=== PATIENT | female | born 1980 | race Caucasian/White ===

== ENCOUNTER 2020-01-27 09:25 | Emergency (ER) | payer BC ==
[~2020-01-27] VITALS: Ht 170.2 cm; Wt 131.4 kg
--- NOTE | 2020-01-27 10:44 | PHYS DOC ---
Past History Past Medical History: Anxiety, Diabetes, Other (History of lower back disc dysfunction) Past Surgical History: Cholecystectomy Smoking: Cigarettes Alcohol Use: None Drug Use: None Adult General Chief Complaint Chief Complaint: SHORTNESS OF BREATH HPI HPI Patient is a 39-year-old female who presents stating " I am in respiratory distress and I have cauda equina syndrome". States she has had URI-like symptoms with increased productive cough and wheezing for past 2 weeks. Reports being tested for Covid approximately 1.5 weeks ago and negative. She has been afebrile. States she had leftover amoxicillin at home and subsequently has been self-medicating taking 500 mg twice daily and is currently on day 7 of treatment. She has not had any fever. Patient also complaining of potential cauda equina syndrome. States " this has happened to me in the past twice and my primary care physician said if it happens again go to the ER". Reports having a spontaneous vaginal delivery February 2019 and ever since has had stress incontinence. Nonetheless, her inco ntinence has been worsening with increased frequency. States current episode has been worse than usual and over the past 3 weeks has been wetting numerous pads daily versus lightly dampening a pad daily. No other changes in bowel function. Reports she has history of back dysfunction, states she has a slipped disc in the L3 region and was previously a patient of [facility], she has never had spine surgery before. Reports long history of saddle anesthesia and symptoms consistent with left sciatica but reports today, right sided sciatica-like symptoms with decrease in sensation of perianal region. 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 She has been working through current complaints but today was concerned and wanted to be evaluated. Her PCP is supposedly pending MRI completion in outpatient setting but patient reports not having the money to pay $400 for this to be completed Review of Systems Review of Systems Fourteen body systems of review of systems have been reviewed. See HPI for pertinent positives and negative responses, other valles all other systems are negative, non-pertinent or non-contributory Allergies Allergies Allergies Coded Allergies Type Severity Reaction Last Updated Verified No Known Drug Allergies 01/27/20 No Physical Exam Physical Exam Constitutional: Well developed, obese, well nourished, no acute distress, non-to xic appearance. HENT: Normocephalic, atraumatic, bilateral external ears normal, oropharynx moist, no oral exudates, moderate postnasal drip present, moderately engorged nasal turbinates with clear rhinorrhea present, external nose normal. Eyes: PERRLA, EOMI, conjunctiva normal, no discharge. Neck: Normal range of motion, no tenderness, supple, no stridor. Cardiovascular: Heart rate regular, sinus rhythm, no murmurs rubs or gallops Lungs & Thorax: No obvious respiratory distress, no accessory muscle usage, bilateral extensive rhonchi and upper lobes Abdomen: Bowel sounds normal, soft, no tenderness, no masses, no pulsatile mas ses. Nonsurgical abdomen, no peritoneal signs Skin: Warm, dry, no erythema, no rash. Back: No tenderness, no CVA tenderness. Extremities: No tenderness, no cyanosis, no clubbing, ROM intact, no edema. Neurologic: Alert and oriented X 3, complete motor examination of entire body with upper and lower extremity strength intact 5/5, bilateral patellar and Achilles tendon reflexes intact, negative Babinski bilaterally. Able to discriminate between sharp and dull touch in all dermatome distributions but a dmits decreased sensation of perianal region (s3) only, no focal neurologic deficits noted. Cranial nerves II through XII intact. Anal tone fully intact, able to bear down fully on finger without laxity or other concerning visual and/or palpable abnormalities. No gait abnormalities. No upper and/or lower motor neuron signs Psychologic: Affect normal, judgement normal, anxious mood Current Patient Data Vital Signs Vital Signs Date Time Temp Pulse Resp B/P (MAP) Pulse Ox O2 Delivery O2 Flow Rate FiO2 01/27/20 10:00 98.6 92 20 164/91 (115) 98 Lab Results Laboratory Tests Test 01/27/20 11:00 01/27/20 11:03 Urine Collection Type Unknown Urine Color Yellow Urine Clarity Hazy Urine pH 5.0 Urine Specific [place] >=1.030 Urine Protein Neg (NEG-TRACE) Urine Glucose (UA) Neg mg/dL (NEG) Urine Ketones (Stick) Neg mg/dL (NEG) Urine Blood Neg (NEG) Urine Nitrite Neg (NEG) Urine Bilirubin Neg (NEG) Urine Urobilinogen Dipstick 0.2 mg/dL (0.2 mg/dL) Urine Leukocyte Esterase Neg (NEG) Urine RBC Rare /HPF (0-2) Urine WBC 1-4 /HPF (0-4) Urine Squamous Epithelial Cells Mod /LPF Urine Bacteria Few /HPF (0-FEW) Urine Mucus Slight /LPF Urine Test Negative (NEG) White Blood Count 9.5 x10^3/uL (4.0-11.0) Red Blood Count 4.81 x10^6/uL (3.50-5.40) Hemoglobin 15.1 g/dL (12.0-15.5) Hematocrit 45.5 % (36.0-47.0) Mean Corpuscular Volume 95 fL (79-100) Mean Corpuscular Hemoglobin 31 pg (25-35) Mean Corpuscular Hemoglobin Concent 33 g/dL (31-37) Red Cell Distribution Width 14.2 % (11.5-14.5) Platelet Count 205 x10^3/uL (140-400) Neutrophils (%) (Auto) 59 % (31-73) Lymphocytes (%) (Auto) 30 % (24-48) Monocytes (%) (Auto) 7 % (0-9) Eosinophils (%) (Auto) 4 % (0-3) Basophils (%) (Auto) 1 % (0-3) Neutrophils # (Auto) 5.6 x10^3uL (1.8-7.7) Lymphocytes # (Auto) 2.8 x10^3/uL (1.0-4.8) Monocytes # (Auto) 0.7 x10^3/uL (0.0-1.1) Eosinophils # (Auto) 0.3 x10^3/uL (0.0-0.7) Basophils # (Auto) 0.1 x10^3/uL (0.0-0.2) Sodium Level 138 mmol/L (136-145) Potassium Level 3.8 mmol/L (3.5-5.1) Chloride Level 103 mmol/L (98-107) Carbon Dioxide Level 26 mmol/L (21-32) Anion Gap 9 (6-14) Blood Urea Nitrogen 12 mg/dL (7-20) Creatinine 0.8 mg/dL (0.6-1.0) Estimated GFR (Cockcroft-Gault) 79.9 BUN/Creatinine Ratio 15 (6-20) Glucose Level 166 mg/dL (70-99) Calcium Level 9.4 mg/dL (8.5-10.1) Total Bilirubin 0.2 mg/dL (0.2-1.0) Aspartate Amino Transf (AST/SGOT) 37 U/L (15-37) Alanine Aminotransferase (ALT/SGPT) 62 U/L (14-59) Alkaline Phosphatase 107 U/L (46-116) Creatine Kinase 209 U/L (26-192) Troponin I Quantitative < 0.017 ng/mL (0-0.055) HT-Bso-B-Type Natriuretic Peptide 18 pg/mL (0-124) Total Protein 7.6 g/dL (6.4-8.2) Albumin 3.6 g/dL (3.4-5.0) Albumin/Globulin Ratio 0.9 (1.0-1.7) EKG EKG EKG ordered and interpreted by myself at 1105 hrs. as sinus rhythm at 86 bpm, unremarkable intervals, no axis deviation, no ischemic findings, no STEMI Radiology/Procedures Radiology/Procedures PROCEDURE: PORTABLE CHEST 1V PORTABLE CHEST 1V 01/27/2020 10:44 AM INDICATION: Shortness of breath COMPARISON: None available TECHNIQUE: Portable frontal view of the chest is provided. FINDINGS: The cardiomediastinal silhouette is within normal limits. Nodular opacity identified in the right infrahilar region measuring 2.2 cm. Left infrahilar soft tissue prominence may reflect lymphadenopathy versus vascular prominence. Mild interstitial prominence. No pleural effusions or pneumothorax No suspicious osseous abnormality. IMPRESSION: 1. Soft tissue nodule in the right infrahilar region measures 2.2 cm. Further characterization with CT chest is recommended. Consideration may be given for rounded pneumonia in the appropriate clinical setting. 2. Prominence of the medhat, left greater than right. This may represent vascular prominence versus lymphadenopathy. Electronically signed by: Hanna Osman MD (01/27/2020 11:26 AM) [facility] PROCEDURE: CT CHEST WO CONTRAST EXAM: CT Chest without IV contrast INDICATION: Abnormal chest x-ray showing no 2.2 cm soft tissue nodule in the right infrahilar region in a patient with shortness of breath. TECHNIQUE: Multi-detector row CT images were acquired from the thoracic inlet through the upper abdomen without the use of IV contrast. Sagittal and coronal images were acquired from the transaxial data. All CT scans performed at this facility utilize dose optimization techniques as appropriate to the exam, including the following: Automated exposure control and adjustment of the mA and/or KV according to patient size (this includes techniques or standardized protocols for targeted exams where dose is indication/reason for exam). COMPARISON: Chest x-ray of 01/27/2020 at 10:08 AM FINDINGS: The absence of IV contrast limits evaluation of soft tissue pathology. CARDIOVASCULAR: Unremarkable MEDIASTINUM & MEDHAT: No adenopathy or masses. LUNGS: Patchy groundglass attenuation opacities are present bilaterally lungs affecting the left upper lobe and right middle lobe to the greatest extent. PLEURAL SPACE: No pleural effusions or pneumothorax. 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 ABDOMEN: Included upper abdomen shows severe fatty infiltration of the liver. IMPRESSION: 1. No mass in the right infrahilar region is identified on noncontrast CT chest. 2. Patchy groundglass opacities in the lungs bilaterally are Present and could reflect atypical pneumonia in the appropriate clinical context. 3. Incidental severe fatty infiltration of the liver. Electronically signed by: Boby Muro MD (01/27/2020 12:51 PM) [id number] Heart Score HEART Score for Chest Pain: HEART Score for Chest Pain Response (Comments) Value History Slighlty/Non-Suspicious 0 ECG Normal 0 Age < 45 0 Risk Factors 1 or 2 Risk Factors 1 Troponin < Normal Limit 0 Total 1 Risk Factors: Risk Factors: DM, Current or recent (<one month) smoker, HTN, HLP, family history of CAD, obesity. Risk Scores: Risk Factors: DM, Current or recent (<one month) smoker, HTN, HLP, family history of CAD, obesity. Course & Med Decision Making Course & Med Decision Making Pertinent Labs and Imaging studies reviewed. (See chart for details) Regarding patient's respiratory complaints, most likely diagnosis atypical pneumonia but could not definitively exclude COVID-19 patient was swabbed for this and results pending. Patient received adequate treatment with home amoxicillin, this will be discontinued. 500 mg azithromycin administered in ER today, this will continue for routine course for atypical pneumonia in an otherwise hemodynamically stable afebrile patient Regarding patient's lower back problems and concern for cauda equina, history is concerning but physical exam grossly unremarkable. With that said, I disclose I could not definitively rule out such an emergent and/or devastating condition. I discussed case with on-call neurosurgery attending at [facility] and recommendations were given at that time to transport out for MRI imaging. I disclosed this plan with patient and she remained in our ER pending EMS transport to local facility for MRI completion. With all this set above, patient vocalized leaving AGAINST MEDICAL ADVICE. Patient citing childcare for her children and lengthy wait due to over saturated medical system at present given current pandemic and high-volume in ER and hospitals etc. I have reviewed the relevant issues with the patient. They are aware of the suspected diagnosis. The patient is AAOx3, exhibits no alcohol or drug intoxication to a point that would impair ability to delineate a choice, and demonstrates all four garcía elements of capacity to make decisions regarding the medical care offered. - Patient able to Communicate their treatment choice - Patient able to Understand and recall information - Patient able to Appreciate and process probable outcomes of their condition - Patient able to Reason through communication their rationalization about their choice of care options, regardless of whether I as their provider agree with their rationale. Risks and Recommendations: The risks of refusing recommended care that were disclosed and acknowledged by the patient include loss of current lifestyle, permanent mental impairment, and . The recommended medical care being refused has been discussed with the patient who understood fully Discharge Care: The patient understands they are welcome to return to the hospital at any time to receive the recommended care or any other care at any time, regardless of their ability to pay for such care. Discharge instructions were provided to the patient in addition to new azithromycin prescription Dragon Disclaimer Dragon Disclaimer This electronic medical record was generated, in whole or in part, using a voice recognition dictation system. Departure Departure: Impression: Primary Impression: Left against medical advice Additional Impressions: Atypical pneumonia Lower back pain Incontinence in female Disposition: 07 AMA/ELOPED/LWBS Condition: STABLE (Cannot definitively say stable as patient left AMA pending MRI to rule out emergent condition) Referrals: RAMIREZ TOURE MD (PCP) Additional Instructions: You have been evaluated in the Emergency Department today. You are refusing further testing, imaging, and further admission and choosing to leave against medical advice. You were advised of your risks of leaving and understand that permanent harm, or even , can occur from failing to follow the recommendations of the physician. Please follow up with your primary care physician MYRON. You have been given antibiotics for atypical pneumonia, please take these to co mpletion in its entirety as written You have refused MRI which was being used to definitively rule out concerning spinal abnormalities such as cauda equina, you are fully aware of the risks and benefits of this decision. I would recommend calling your primary care physician MYRON regarding this to schedule extremely close outpatient follow-up and subsequent completion of MRI Return to the Emergency Department immediately if you experience worsening or uncontrolled pain, persistent fevers, recurrent vomiting, blood in vomit, blood in stool, dark tarry stool, chest pain, shortness of breath, or for any other concerning symptoms. Scripts Azithromycin (AZITHROMYCIN TABLET) 250 Mg Tablet 250 MG PO DAILY for ANTI-BIOTIC for 4 Days, #4 TAB 0 Refills Prov: LUIS A CRYSTAL DO 01/27/20 Problem Qualifiers LUIS A CRYSTAL DO Jan 27, 2020 10:44
[2020-01-27] MEDS ORDERED: IPRATRPIUM/ALBUTEROL 0.5/2.5MG 3 ML NEBU. NEB ONE (10:45)
--- NOTE | 2020-01-27 11:11 | EKG ---
[address] [address] Test Date: 2020-01-27 Test Time: 11:02:08 Pat Name: TONYA SANDOVAL Department: Room: Gender: F Make Up Girl: : 1980 Requested By: LUIS A CRYSTAL Order Number: [id number] Reading MD: Measurements Intervals [place] Rate: 86 P: 15 [place]: 136 QRS: 76 QRSD: 74 T: 45 QT: 348 QTc: 419 Interpretive Statements SINUS RHYTHM NORMAL ECG RI6.02 No previous ECG available for comparison
[2020-01-27 11:27] LABS: BASO # 0.1 x10^3/uL (0.0-0.2); BASO % 1 % (0-3); EOS # 0.3 x10^3/uL (0.0-0.7); EOS % 4 % (0-3); HEMATOCRIT 45.5 % (36.0-47.0); HEMOGLOBIN 15.1 g/dL (12.0-15.5); LYMPH # 2.8 x10^3/uL (1.0-4.8); LYMPH % 30 % (24-48); MEAN CORPUSCULAR HEMOGLOBIN 31 pg (25-35); MEAN CORPUSCULAR HGB CONC 33 g/dL (31-37); MEAN CORPUSCULAR VOLUME 95 fL (79-100); MONO # 0.7 x10^3/uL (0.0-1.1); MONO % 7 % (0-9); NEUT # 5.6 x10^3uL (1.8-7.7); NEUT % 59 % (31-73); PLATELET COUNT 205 x10^3/uL (140-400); RED BLOOD COUNT 4.81 x10^6/uL (3.50-5.40); RED CELL DISTRIBUTION WIDTH 14.2 % (11.5-14.5); WHITE BLOOD COUNT 9.5 x10^3/uL (4.0-11.0)
--- NOTE | 2020-01-27 11:29 | RAD ---
PORTABLE CHEST 1V 01/27/2020 10:44 AM INDICATION: Shortness of breath COMPARISON: None available TECHNIQUE: Portable frontal view of the chest is provided. FINDINGS: The cardiomediastinal silhouette is within normal limits. Nodular opacity identified in the right infrahilar region measuring 2.2 cm. Left infrahilar soft tissue prominence may reflect lymphadenopathy versus vascular prominence. Mild interstitial prominence. No pleural effusions or pneumothorax No suspicious osseous abnormality. IMPRESSION: 1. Soft tissue nodule in the right infrahilar region measures 2.2 cm. Further characterization with CT chest is recommended. Consideration may be given for rounded pneumonia in the appropriate clinical setting. 2. Prominence of the medhat, left greater than right. This may represent vascular prominence versus lymphadenopathy. Electronically signed by: Hanna Osman MD (01/27/2020 11:26 AM) JAY
[2020-01-27 11:31] LABS: BILIRUBIN,URINE NEG (NEG); CLARITY,URINE HAZY; COLOR,URINE YELLOW; GLUCOSE,URINE NEG (NEG); NITRITE,URINE NEG (NEG); UROBILINOGEN,URINE 0.2 mg/dL (0.2 mg/dL)
[2020-01-27 11:32] LABS: BACTERIA,URINE FEW /HPF (0-FEW); RBC,URINE RARE /HPF (0-2); SQUAMOUS EPITHELIAL CELL,UR MOD /LPF; U PREG PATIENT NEGATIVE (NEG)
[2020-01-27 11:35] LABS: CALCIUM 9.4 mg/dL (8.5-10.1); CREATININE 0.8 mg/dL (0.6-1.0); GFR 79.9; POTASSIUM 3.8 mmol/L (3.5-5.1)
[2020-01-27 11:48] LABS: ALBUMIN 3.6 g/dL (3.4-5.0); ALBUMIN/GLOBULIN RATIO 0.9 (1.0-1.7); TOTAL BILIRUBIN 0.2 mg/dL (0.2-1.0); TOTAL PROTEIN 7.6 g/dL (6.4-8.2)
--- NOTE | 2020-01-27 12:54 | RAD ---
EXAM: CT Chest without IV contrast INDICATION: Abnormal chest x-ray showing no 2.2 cm soft tissue nodule in the right infrahilar region in a patient with shortness of breath. TECHNIQUE: Multi-detector row CT images were acquired from the thoracic inlet through the upper abdomen without the use of IV contrast. Sagittal and coronal images were acquired from the transaxial data. All CT scans performed at this facility utilize dose optimization techniques as appropriate to the exam, including the following: Automated exposure control and adjustment of the mA and/or KV according to patient size (this includes techniques or standardized protocols for targeted exams where dose is indication/reason for exam). COMPARISON: Chest x-ray of 01/27/2020 at 10:08 AM FINDINGS: The absence of IV contrast limits evaluation of soft tissue pathology. CARDIOVASCULAR: Unremarkable MEDIASTINUM & JENNIFER: No adenopathy or masses. LUNGS: Patchy groundglass attenuation opacities are present bilaterally lungs affecting the left upper lobe and right middle lobe to the greatest extent. PLEURAL SPACE: No pleural effusions or pneumothorax. OSSEOUS & SOFT TISSUE: Unremarkable Tubular radiopaque foreign body in the patient's left bra cup is present, resembling a cigarette automobile mechanic supervisor. ABDOMEN: Included upper abdomen shows severe fatty infiltration of the liver. IMPRESSION: 1. No mass in the right infrahilar region is identified on noncontrast CT chest. 2. Patchy groundglass opacities in the lungs bilaterally are Present and could reflect atypical pneumonia in the appropriate clinical context. 3. Incidental severe fatty infiltration of the liver. Electronically signed by: Boby Muro MD (01/27/2020 12:51 PM) [id number]
[2020-01-27 14:34] VITALS: BP 151/81
[2020-01-27] MEDS ORDERED: AZIT250T6 PO (14:37)
[2020-01-27] MEDS ORDERED: AZITHROMYCIN 250 MG TABLET. PO ONE (14:45)
== END 2020-01-27 14:44 | disposition left against medical advice (07) ==
LOC: ER 09:25
DX: J18.9 Pneumonia, unspecified organism (principal); M54.5 Low back pain; N39.3 Stress incontinence (female) (male); G83.4 Cauda equina syndrome; F41.9 Anxiety disorder, unspecified; E11.9 Type 2 diabetes mellitus without complications; F17.210 Nicotine dependence, cigarettes, uncomplicated; Z20.828 Contact with and (suspected) exposure to other viral communicable diseases
CPT/HCPCS: 36415; 71045; 71250; 80053; 81001; 81025; 82550; 83880; 84484; 85025; 93005; 94640; 99285; C9803; U0003

== ENCOUNTER 2020-06-09 10:43 | Emergency (ER) | payer SELFPAY ==
[~2020-06-09] VITALS: Ht 170.2 cm; Wt 128.1 kg
[~2020-06-09 10:43] MED LIST: AZIT250T6 PO
[2020-06-09] MEDS: IV NORMAL SALINE 1,000ML 1,000 ML IV SCH (11:15)
--- NOTE | 2020-06-09 11:17 | PHYS DOC ---
Past History Past Medical History: Anxiety, Diabetes, Other Additional Past Medical Histor: CAUDA EQUINA, LUPUS Past Surgical History: Cholecystectomy Smoking: Cigarettes Alcohol Use: None Drug Use: None Adult General Chief Complaint Chief Complaint: ABDOMINAL PAIN IN HPI HPI Patient is a 39-year-old female 7 weeks by last menstrual period with a past medical history of anxiety, hypertension and PCOS now presenting to emergency department for new onset of left lower quadrant abdominal pain. Patient states that she had worsening pain in the left lower quadrant rating to the left back that started spontaneously approximately 3 days ago and has been increasing in severity. Patient states is characterized by worsening spasms that are severe enough that they cause her to double over and vomit. Patient states she had similar symptoms when she had a left-sided ovarian cyst with her PCOS. Patient also notes that she has had some intermittent vaginal spotting and bleeding. Denies any associated fever, chest pain or shortness of breath. Review of Systems Review of Systems Constitutional: Denies fever or chills [] Eyes: Denies change in visual acuity, redness, or eye pain [] HENT: Denies nasal congestion or sore throat [] Respiratory: Denies cough or shortness of breath [] Cardiovascular: No additional information not addressed in HPI [] GI: Denies abdominal pain, nausea, vomiting, bloody stools or diarrhea [] : Denies dysuria or hematuria [] Musculoskeletal: Denies back pain or joint pain [] Integument: Denies rash or skin lesions [] Neurologic: Denies headache, focal weakness or sensory changes [] Endocrine: Denies polyuria or polydipsia [] All other systems were reviewed and found to be within normal limits, except as documented in this note. Current Medications Current Medications Current Medications Medications (Trade) Dose Ordered Sig/El Start Time Stop Time Status Last Admin Dose Admin Sodium Chloride 1,000 ml @ 1,000 mls/hr Q1H 06/09/20 11:15 06/09/20 12:14 Allergies Allergies Allergies Coded Allergies Type Severity Reaction Last Updated Verified No Known Drug Allergies 01/27/20 No Physical Exam Physical Exam Constitutional: Well developed, well nourished, no acute distress, non-toxic ina earance. [] HENT: Normocephalic, atraumatic, bilateral external ears normal, oropharynx moist, no oral exudates, nose normal. [] Eyes: PERRLA, EOMI, conjunctiva normal, no discharge. [] Neck: Normal range of motion, no tenderness, supple, no stridor. [] Cardiovascular:Heart rate regular rhythm, no murmur [] Lungs & Thorax: Bilateral breath sounds clear to auscultation [] Abdomen: Bowel sounds normal, soft, no tenderness, no masses, no pulsatile masses. [] Skin: Warm, dry, no erythema, no rash. [] Back: No tenderness, no CVA tenderness. [] Extremities: No tenderness, no cyanosis, no clubbing, ROM intact, no edema. [] Neurologic: Alert and oriented X 3, normal motor function, normal sensory function, no focal deficits noted. [] Psychologic: Affect normal, judgement normal, mood normal. [] Current Patient Data Vital Signs Vital Signs Date Time Temp Pulse Resp B/P (MAP) Pulse Ox O2 Delivery O2 Flow Rate FiO2 06/09/20 10:52 98.0 81 16 137/89 (105) 98 Room Air Lab Results Laboratory Tests Test 06/09/20 10:59 POC Urine HCG, Qualitative hcg positive (Negative) EKG EKG [] Radiology/Procedures Radiology/Procedures [] Heart Score Risk Factors: Risk Factors: DM, Current or recent (<one month) smoker, HTN, HLP, family history of CAD, obesity. Risk Scores: Risk Factors: DM, Current or recent (<one month) smoker, HTN, HLP, family history of CAD, obesity. Course & Med Decision Making Course & Med Decision Making Pertinent Labs and Imaging studies reviewed. (See chart for details) 39F sinus bradycardia male presenting with large abdominal wound. This is a setting of does raise concern for acute ectopic or ovarian torsion. Will obtain labs and pelvic ultrasound and reevaluate. New After initial evaluation ultrasound did not demonstrate any significant pelvic abnormality. Our labs did demonstrate an elevated lipase raises concern for acute pancreatitis. Given the patient's severity and this I did offer the patient to be admitted to the hospital. Patient states instead she is not able to stay because she has children to care for at home and instead wants to leave AGAINST MEDICAL ADVICE. I had an extensive discussion with the patient regarding this and she still stated that she wanted to leave AGAINST MEDICAL ADVICE despite knowing verbalized understanding that she could reinjured. [place] Disclaimer Dragon Disclaimer This electronic medical record was generated, in whole or in part, using a voice recognition dictation system. Departure Departure: Impression: Primary Impression: Abdominal pain affecting Disposition: 07 AMA/ELOPED/LWBS Condition: STABLE Referrals: RAMIREZ TOURE MD (PCP) FIOR KHALIL MD Jun 09, 2020 11:16
[2020-06-09 11:32] LABS: BASO # 0.1 x10^3/uL (0.0-0.2); BASO % 1 % (0-3); EOS # 0.2 x10^3/uL (0.0-0.7); EOS % 2 % (0-3); HEMATOCRIT 43.9 % (36.0-47.0); HEMOGLOBIN 14.8 g/dL (12.0-15.5); LYMPH % 33 % (24-48); MEAN CORPUSCULAR HEMOGLOBIN 32 pg (25-35); MEAN CORPUSCULAR HGB CONC 34 g/dL (31-37); MEAN CORPUSCULAR VOLUME 94 fL (79-100); MONO # 0.7 x10^3/uL (0.0-1.1); MONO % 8 % (0-9); NEUT # 5.2 x10^3uL (1.8-7.7); NEUT % 57 % (31-73); PLATELET COUNT 213 x10^3/uL (140-400); RED BLOOD COUNT 4.68 x10^6/uL (3.50-5.40); RED CELL DISTRIBUTION WIDTH 14.4 % (11.5-14.5); WHITE BLOOD COUNT 9.1 x10^3/uL (4.0-11.0)
[2020-06-09 11:50] LABS: CALCIUM 9.9 mg/dL (8.5-10.1); CREATININE 0.7 mg/dL (0.6-1.0); GFR 93.2; POTASSIUM 3.8 mmol/L (3.5-5.1)
[2020-06-09 11:54] LABS: ALBUMIN 3.6 g/dL (3.4-5.0); ALBUMIN/GLOBULIN RATIO 0.9 (1.0-1.7); TOTAL BILIRUBIN 0.3 mg/dL (0.2-1.0); TOTAL PROTEIN 7.5 g/dL (6.4-8.2)
--- NOTE | 2020-06-09 12:06 | RAD ---
US OB <14 WKS +TV History: Reason: llq pain and tenderness / Spl. Instructions: / History: Comparison: None. Technique: Grayscale and color Doppler imaging of the pelvis was performed using transabdominal and t ransvaginal technique. Findings: The uterus measures 10.2 x 6.8 x 6.1 cm. Cervical length approximately 2.4 cm. Single intrauterine gestational sac with regular appearance. Yolk sac is identified. pole is id entified with crown-rump length 1.3 cm. Estimated gestational age by ultrasound 7 weeks 3 days. heart rate 150 bpm. Amniotic fluid within normal limits. Right ovary measures 2.3 x 2.4 x 2.0 cm. Multiple follicles. Left ovary measures 3.2 x 3.0 x 2.3 cm. Multiple follicles. Normal Doppler flow to the ovaries bilaterally. No adnexal masses are seen. IMPRESSION: 1. Single intrauterine with gestational age 7 weeks 3 days and heart rate 150 bpm. Electronically signed by: Angel Cruz DO (06/09/2020 12:04 PM) [id number]
[2020-06-09 12:23] LABS: PREG TEST PT QUAL POSITIVE (NEG)
[2020-06-09 12:41] LABS: BACTERIA,URINE 0 /HPF (0-FEW); BILIRUBIN,URINE NEG (NEG); CLARITY,URINE HAZY; COLOR,URINE YELLOW; GLUCOSE,URINE NEG (NEG); NITRITE,URINE NEG (NEG); SQUAMOUS EPITHELIAL CELL,UR MANY /LPF; UROBILINOGEN,URINE 0.2 mg/dL (0.2 mg/dL)
[2020-06-09 12:53] VITALS: BP 117/29
== END 2020-06-09 13:09 | disposition left against medical advice (07) ==
LOC: ER 10:43
DX: O26.891 Other specified pregnancy related conditions, first trimester (principal); R10.32 Left lower quadrant pain; O21.9 Vomiting of pregnancy, unspecified; O24.911 Unspecified diabetes mellitus in pregnancy, first trimester; F17.210 Nicotine dependence, cigarettes, uncomplicated; Z3A.01 Less than 8 weeks gestation of pregnancy
CPT/HCPCS: 36415; 76801; 76817; 80053; 81001; 81025; 83690; 84702; 84703; 85025; 86900; 86901; 87086; 96360; 96361; 99284; J7030; 99285-25

== ENCOUNTER → 2020-07-02 | Outpatient (CLI) | payer OTHER ==
[2020-06-09 12:53] VITALS: BP 117/29
[2020-07-02 14:38] LABS: BASO % 1 % (0-3); EOS # 0.3 x10^3/uL (0.0-0.7); EOS % 4 % (0-3); HEMATOCRIT 40.8 % (36.0-47.0); HEMOGLOBIN 13.9 g/dL (12.0-15.5); LYMPH # 2.5 x10^3/uL (1.0-4.8); LYMPH % 30 % (24-48); MEAN CORPUSCULAR HEMOGLOBIN 32 pg (25-35); MEAN CORPUSCULAR HGB CONC 34 g/dL (31-37); MEAN CORPUSCULAR VOLUME 94 fL (79-100); MONO # 0.6 x10^3/uL (0.0-1.1); MONO % 7 % (0-9); NEUT % 59 % (31-73); PLATELET COUNT 181 x10^3/uL (140-400); RED BLOOD COUNT 4.35 x10^6/uL (3.50-5.40); RED CELL DISTRIBUTION WIDTH 13.9 % (11.5-14.5); WHITE BLOOD COUNT 8.5 x10^3/uL (4.0-11.0)
[2020-07-02 14:48] LABS: ALBUMIN 3.3 g/dL (3.4-5.0); ALBUMIN/GLOBULIN RATIO 0.9 (1.0-1.7); CALCIUM 10.2 mg/dL (8.5-10.1); CREATININE 0.7 mg/dL (0.6-1.0); GFR 93.2; POTASSIUM 3.7 mmol/L (3.5-5.1); TOTAL BILIRUBIN 0.2 mg/dL (0.2-1.0)
== END ==
LOC: LAB 13:33
PROVIDERS: ATTEND Specialist
DX: R10.84 Generalized abdominal pain (principal)
CPT/HCPCS: 36415; 80053; 82150; 83690; 85025

== ENCOUNTER 2021-01-20 18:09 | Emergency (ER) | payer OTHER ==
[~2021-01-20] VITALS: Ht 170.2 cm; Wt 128.1 kg
[2021-01-20 18:45] VITALS: BP 120/67
--- NOTE | 2021-01-20 19:08 | PHYS DOC ---
Past History Past Medical History: Anxiety, Diabetes, Other Additional Past Medical Histor: CAUDA EQUINA, LUPUS Past Surgical History: Cholecystectomy Smoking: Cigarettes Alcohol Use: None Drug Use: None General Adult EDM: Chief Complaint: HEADACHE HPI: HPI: 40-year-old female presents with headache. Patient has a history of migraines. She has pain on the right side of her head which is the normal location of her migraines. She has had the symptoms for several days now. The thing that is different is that she is having some visual field changes in the right visual field. She is also stood up a couple times a day and had an episode of blacking out. She just wants to make sure there is nothing more serious than her headache going on. She would also like her headache to be better. She denies fever or chills. She just recently gave less than 2 weeks ago. She had gestational diabetes but is now only on Metformin. Review of Systems: Review of Systems: Constitutional: Denies fever or chills Eyes: Right lateral visual field spots. HENT: Denies nasal congestion or sore throat Respiratory: Denies cough or shortness of breath Cardiovascular: Denies chest pain or edema GI: Denies abdominal pain, nausea, vomiting, bloody stools or diarrhea : Denies dysuria Musculoskeletal: Denies back pain or joint pain Integument: Denies rash Neurologic: headache. Syncope. denies focal weakness or sensory changes Endocrine: Denies polyuria or polydipsia Lymphatic: Denies swollen glands Psychiatric: Denies depression or anxiety Allergies: Allergies: Allergies Coded Allergies Type Severity Reaction Last Updated Verified No Known Drug Allergies 01/27/20 No Physical Exam: PE: Constitutional: Well developed, well nourished, morbidly obese, no acute distress, non-toxic appearance. [] HENT: Normocephalic, atraumatic, bilateral external ears normal, oropharynx moist, no oral exudates, nose normal. [] Eyes: PERRLA, EOMI, conjunctiva normal, no discharge. [] Neck: Normal range of motion, no tenderness, supple, no stridor. [] Cardiovascular:Heart rate regular rhythm, no murmur [] Lungs & Thorax: Bilateral breath sounds clear to auscultation [] Abdomen: Bowel sounds normal, soft, no tenderness, no masses, no pulsatile masses. [] Skin: Warm, dry, no erythema, no rash. [] Back: No tenderness, no CVA tenderness. [] Extremities: No tenderness, no cyanosis, no clubbing, ROM intact, no edema. [] Neurologic: Alert and oriented X 3, normal motor function, normal sensory function, no focal deficits noted. [] Psychologic: Affect normal, judgement normal, mood normal. [] Current Patient Data: Vital Signs: Vital Signs Date Time Temp Pulse Resp B/P (MAP) Pulse Ox O2 Delivery O2 Flow Rate FiO2 01/20/21 18:45 98.1 89 16 120/67 (84) 97 Room Air EKG: EKG: [] Radiology/Procedures: Radiology/Procedures: [] Impressions: EXAMINATION: CT head without IV contrast. INDICATION:40 years, Female, headache, visual changes. COMPARISON: None TECHNIQUE: Spiral acquisition of contiguous images from the skull base to the vertex were obtained. Sagittal and coronal 2D reformatted series were provided by the technologist. Soft tissue and bone window algorithms were reviewed. Exposure: One or more of the following individualized dose reduction techniques were utilized for this examination: 1. Automated exposure control 2. Adjustment of the mA and/or kV according to patient size 3. Use of iterative reconstruction technique. FINDINGS: Neither mass, midline shift, intracranial hemorrhage, acute/subacute ischemic changes, nor extraaxial fluid collections are seen. The brain parenchyma is normal in appearance. The ventricles are normal in size. The paranasal sinuses, mastoid air cells, and middle ears are clear.The orbital contents appear within normal limits. IMPRESSION: No acute intracranial abnormality. Electronically signed by: Jordana Leonardo MD (01/20/2021 7:35 PM) [facility] DICTATED AND SIGNED BY: JORDANA LEONARDO MD DATE: 01/20/211932 CC: DAVID MCKAY DO; RAMIREZ TOURE MD ~MTH0 0 Heart Score: C/O Chest Pain: N/A Risk Factors: Risk Factors: DM, Current or recent (<one month) smoker, HTN, HLP, family history of CAD, obesity. Risk Scores: Score 0 - 3: 2.5% MACE over next 6 weeks - Discharge Home Score 4 - 6: 20.3% MACE over next 6 weeks - Admit for Clinical Observation Score 7 - 10: 72.7% MACE over next 6 weeks - Early Invasive Strategies Course & Med Decision Making: Course & Med Decision Making Pertinent Labs and Imaging studies reviewed. (See chart for details) The patient also had a recent full eye exam and everything was reported to be normal. The patient's head CT is negative for acute findings. Her labs are unremarkable. Her urinalysis suggestive of urinary tract infection. I will treat her with Keflex for 3 days. We will give the first dose in the ER. For her headache I given her a liter normal saline, 30 mg of Toradol, 25 mg of Benadryl, 10 mg of Reglan. She is feeling better and would like to go home. She is stable for discharge at this time. [] Dragon Disclaimer: Dragon Disclaimer: This electronic medical record was generated, in whole or in part, using a voice recognition dictation system. Departure Departure: Impression: Primary Impression: Migraine headache Additional Impression: UTI (urinary tract infection) Disposition: HOME / SELF CARE / HOMELESS Condition: STABLE Referrals: RAMIREZ TOURE MD (PCP) Patient Instructions: Migraine Headache, [id number], Urinary Tract Infection, [id number] Scripts Cephalexin (CEPHALEXIN) 500 Mg Tablet 1 TAB PO TID for UTI for 3 Days, #9 TAB Prov: DAVID MCKAY DO 01/20/21 DAVID MCKAY DO Jan 20, 2021 19:08
[2021-01-20] MEDS ORDERED: IV NORMAL SALINE 1,000ML 1,000 ML IV ONE (19:15)
[2021-01-20] MEDS ORDERED: METOCLOPRAMIDE HCL 10 MG/2 ML VIAL. IVP ONE (19:15)
[2021-01-20] MEDS ORDERED: diphenhydrAMINE 50 MG/ML VIAL IVP ONE (19:15)
[2021-01-20] MEDS ORDERED: KETOROLAC 30 MG/ML VIAL. IVP ONE (19:15)
--- NOTE | 2021-01-20 19:38 | RAD ---
EXAMINATION: CT head without IV contrast. INDICATION:40 years, Female, headache, visual changes. COMPARISON: None TECHNIQUE: Spiral acquisition of contiguous images from the skull base to the vertex were obtained. S agittal and coronal 2D reformatted series were provided by the technologist. Soft tissue and bone win jennifer algorithms were reviewed. Exposure: One or more of the following individualized dose reduction techniques were utilized for thi s examination: 1. Automated exposure control 2. Adjustment of the mA and/or kV according to patient size 3. Use of iterative reconstruction technique. FINDINGS: Neither mass, midline shift, intracranial hemorrhage, acute/subacute ischemic changes, nor extraaxial fluid collections are seen. The brain parenchyma is normal in appearance. The ventricles are normal in size. The paranasal sinuses, mastoid air cells, and middle ears are clear.The orbital contents appear withi n normal limits. IMPRESSION: No acute intracranial abnormality. Electronically signed by: Jordana Leonardo MD (01/20/2021 7:35 PM) [facility]
[2021-01-20 20:11] LABS: BASO # 0.1 x10^3/uL (0.0-0.2); BASO % 1 % (0-3); EOS # 0.2 x10^3/uL (0.0-0.7); EOS % 2 % (0-3); HEMATOCRIT 40.5 % (36.0-47.0); HEMOGLOBIN 13.7 g/dL (12.0-15.5); LYMPH # 1.5 x10^3/uL (1.0-4.8); LYMPH % 14 % (24-48); MEAN CORPUSCULAR HEMOGLOBIN 31 pg (25-35); MEAN CORPUSCULAR HGB CONC 34 g/dL (31-37); MEAN CORPUSCULAR VOLUME 91 fL (79-100); MONO # 0.4 x10^3/uL (0.0-1.1); MONO % 4 % (0-9); NEUT # 8.7 x10^3uL (1.8-7.7); NEUT % 80 % (31-73); PLATELET COUNT 263 x10^3/uL (140-400); RED BLOOD COUNT 4.45 x10^6/uL (3.50-5.40); WHITE BLOOD COUNT 10.9 x10^3/uL (4.0-11.0)
[2021-01-20 20:21] LABS: CREATININE 0.8 mg/dL (0.6-1.0); GFR 79.4; POTASSIUM 4.4 mmol/L (3.5-5.1)
[2021-01-20 20:27] LABS: ALBUMIN 3.1 g/dL (3.4-5.0); ALBUMIN/GLOBULIN RATIO 0.8 (1.0-1.7); TOTAL BILIRUBIN 0.2 mg/dL (0.2-1.0); TOTAL PROTEIN 7.2 g/dL (6.4-8.2)
[2021-01-20 20:59] LABS: BACTERIA,URINE MOD /HPF (0-FEW); BILIRUBIN,URINE NEG (NEG); CLARITY,URINE CLOUDY; COLOR,URINE YELLOW; GLUCOSE,URINE NEG (NEG); NITRITE,URINE NEG (NEG); SQUAMOUS EPITHELIAL CELL,UR MANY /LPF; UROBILINOGEN,URINE 0.2 mg/dL (0.2 mg/dL)
[2021-01-20] MEDS ORDERED: CEPH500T PO (21:24)
[2021-01-20] MEDS ORDERED: CEPHALEXIN 250 MG CAPSULE PO ONE (21:30)
== END 2021-01-20 21:32 | disposition home or self-care (01) ==
LOC: ER 18:09
DX: G43.909 Migraine, unspecified, not intractable, without status migrainosus (principal); N39.0 Urinary tract infection, site not specified; E11.9 Type 2 diabetes mellitus without complications; F17.210 Nicotine dependence, cigarettes, uncomplicated; Z90.49 Acquired absence of other specified parts of digestive tract
CPT/HCPCS: 36415; 70450; 80053; 81001; 85025; 87086; 96361; 96374; 96375; 99284; J1200; J1885; J2765; J7030; 87147

== ENCOUNTER 2021-07-16 09:28 | Emergency (ER) | payer OTHER ==
[~2021-07-16] VITALS: Ht 180.3 cm; Wt 131.2 kg
[~2021-07-16 09:28] MED LIST changes: +CEPH500T PO
--- NOTE | 2021-07-16 09:57 | PHYS DOC ---
Past History Past Medical History: Anxiety, Diabetes, Other Additional Past Medical Histor: PTSD, PANCREATITIS Past Surgical History: Cholecystectomy Smoking: Cigarettes Alcohol Use: None Drug Use: None General Adult EDM: Chief Complaint: ABDOMINAL PAIN HPI: HPI: Patient is a 41-year-old female presents with right upper quadrant pain has been present for the last 3 to 4 days. The patient describes it as a sharp and crampy sensation which is waxing and waning in intensity. She has been nauseated but has not thrown up. No lower quadrant pain, burning with urination or diarrhea. She has not had a fever that she is aware of. She denies any chest pain, shortness of breath or cough as well. The patient did have a cholecystectomy done about 3 years ago, she is also had an episode of pancrea titis about 10 months ago. No history of peptic ulcer disease. Review of Systems: Review of Systems: Constitutional: Denies fever Eyes: Denies change in visual acuity or eye pain HENT: Denies sore throat Respiratory: Denies shortness of breath Cardiovascular: Denies chest pain GI: Reports abd pain : Denies dysuria Musculoskeletal: Denies back or extremity injury Integument: Denies rash or skin lesions Neurologic: Denies headache, focal weakness or sensory changes All other systems were reviewed and found to be within normal limits, except as documented in this note. Current Medications: Current Meds: Current Medications Medications (Trade) Dose Ordered Sig/El Start Time Stop Time Status Last Admin Dose Admin Sodium Chloride 1,000 ml @ 1,000 mls/hr 1X ONCE 07/16/21 10:00 07/16/21 10:59 Allergies: Allergies: Allergies Coded Allergies Type Severity Reaction Last Updated Verified No Known Drug Allergies 07/16/21 No Physical Exam: PE: Constitutional: Well developed, well nourished, no acute distress, non-toxic appearance. HENT: Normocephalic, atraumatic, bilateral external ears normal, mucosa moist, nose normal. Eyes: EOMI, conjunctiva normal, no discharge. Neck: Normal range of motion, supple, no stridor, no meningeal signs. Cardiovascular: Regular rate and rhythm Lungs & Thorax: Bilateral breath sounds clear to auscultation Abdomen: Soft, tender to palpation in the right upper quadrant as well as epigastrium. No CVA tenderness. Skin: Warm, dry, no erythema, no rash. Extremities: No tenderness, no cyanosis, no clubbing, ROM intact, no edema. Neurologic: Alert and oriented, normal motor function, normal sensory function, no focal deficits noted. Psychologic: Affect normal, judgement normal, mood normal. Current Patient Data: Vital Signs: Vital Signs Date Time Temp Pulse Resp B/P (MAP) Pulse Ox O2 Delivery O2 Flow Rate FiO2 07/16/21 09:46 98.2 103 20 158/90 (112) 98 Room Air EKG: EKG: [] Radiology/Procedures: Radiology/Procedures: [] Heart Score: C/O Chest Pain: No Risk Factors: Risk Factors: DM, Current or recent (<one month) smoker, HTN, HLP, family history of CAD, obesity. Risk Scores: Score 0 - 3: 2.5% MACE over next 6 weeks - Discharge Home Score 4 - 6: 20.3% MACE over next 6 weeks - Admit for Clinical Observation Score 7 - 10: 72.7% MACE over next 6 weeks - Early Invasive Strategies Course & Med Decision Making: Course & Med Decision Making Pertinent Labs and Imaging studies reviewed. (See chart for details) [] This is a 41-year-old female with right upper quadrant and epigastric pain. LFTs are mildly elevated but the rest of her lab panel was unremarkable. CT of the abdomen and pelvis was negative for acute surgical pathology. We will discharge the patient with prescriptions for Pepcid and Carafate, she should follow-up with her primary care physician. Return to the emergency department if symptoms become worse or other concerns arise, she is stable for discharge at this time. [place] Disclaimer: [place] Disclaimer: This electronic medical record was generated, in whole or in part, using a voice recognition dictation system. Departure Departure: Impression: Primary Impression: Abdominal pain Disposition: HOME / SELF CARE / HOMELESS Condition: STABLE Referrals: RAMIREZ TOURE MD (PCP) Patient Instructions: Abdominal Pain Scripts Famotidine (PEPCID) 20 Mg Tablet 1 TAB PO BID for abd pain, #60 TAB 3 Refills Prov: RHONA RAMOS MD 07/16/21 Sucralfate (CARAFATE) 1 Gm Tablet 1 GM PO TID for abdominal pain for 30 Days, #90 TAB Prov: RHONA RAMOS MD 07/16/21 RHONA RAMOS MD Jul 16, 2021 09:56
[2021-07-16] MEDS ORDERED: FAMOTIDINE 20 MG/2 ML VIAL IVP ONE (10:00)
[2021-07-16] MEDS ORDERED: IOHEXOL 300 MG/ML 75 ML VIAL. IV ONE (10:00)
[2021-07-16] MEDS ORDERED: ONDANSETRON PF 4 MG/2 ML VIAL. IVP ONE (10:00)
[2021-07-16] MEDS ORDERED: KETOROLAC 30 MG/ML VIAL. IVP ONE (10:00)
[2021-07-16] MEDS ORDERED: IV NORMAL SALINE 1,000ML 1,000 ML IV ONE (10:00)
[2021-07-16 10:42] LABS: BASO # 0.1 x10^3/uL (0.0-0.2); BASO % 1 % (0-3); CALCIUM 9.1 mg/dL (8.5-10.1); CREATININE 0.8 mg/dL (0.6-1.0); EOS # 0.2 x10^3/uL (0.0-0.7); EOS % 3 % (0-3); HEMATOCRIT 42.4 % (36.0-47.0); HEMOGLOBIN 14.4 g/dL (12.0-15.5); LYMPH # 2.6 x10^3/uL (1.0-4.8); LYMPH % 33 % (24-48); MEAN CORPUSCULAR HEMOGLOBIN 32 pg (25-35); MEAN CORPUSCULAR HGB CONC 34 g/dL (31-37); MEAN CORPUSCULAR VOLUME 93 fL (79-100); MONO # 0.4 x10^3/uL (0.0-1.1); MONO % 5 % (0-9); NEUT # 4.6 x10^3uL (1.8-7.7); NEUT % 58 % (31-73); PLATELET COUNT 206 x10^3/uL (140-400); POTASSIUM 3.7 mmol/L (3.5-5.1); RED BLOOD COUNT 4.56 x10^6/uL (3.50-5.40); RED CELL DISTRIBUTION WIDTH 15.8 % (11.5-14.5); WHITE BLOOD COUNT 7.8 x10^3/uL (4.0-11.0)
[2021-07-16 10:44] LABS: CLARITY,URINE HAZY; COLOR,URINE YELLOW; GLUCOSE,URINE NEG (NEG)
[2021-07-16 10:45] LABS: NITRITE,URINE NEG (NEG); RBC,URINE RARE /HPF (0-2); UROBILINOGEN,URINE 0.2 mg/dL (0.2 mg/dL)
[2021-07-16 10:46] LABS: BACTERIA,URINE MOD /HPF (0-FEW); SQUAMOUS EPITHELIAL CELL,UR MANY /LPF
[2021-07-16 10:48] LABS: U PREG PATIENT NEGATIVE (NEG)
[2021-07-16 10:48] LABS: ALBUMIN 3.3 g/dL (3.4-5.0); ALBUMIN/GLOBULIN RATIO 0.9 (1.0-1.7); TOTAL BILIRUBIN 0.2 mg/dL (0.2-1.0); TOTAL PROTEIN 6.9 g/dL (6.4-8.2)
--- NOTE | 2021-07-16 11:12 | RAD ---
CT ABDOMEN+PELVIS W History: RUQ pain Comparison: None. Technique: After administration of intravenous contrast, helical CT of the abdomen and pelvis was per formed from the lung bases through the ischial tuberosities. Coronal and sagittal reconstructions wer e obtained. 75 mL of Isovue-370 were used. One or more of the following dose reduction techniques wer e utilized: Automated exposure control (AEC), Adjustment of mA and/or kV according to patient size, U se of iterative reconstruction technique such as ASiR, CT scan done according to ALARA and image gent ly/image wisely Abdomen Findings: The visualized lung bases are clear. Liver measures 23.4 cm craniocaudad. Diffuse hepatic steatosis. Cholecystectomy. The pancreas, spleen , and bilateral adrenal glands are normal. Symmetric renal enhancement. There is no focal renal mass. There is no hydronephrosis. The visualized loops of small bowel are normal. Colonic diverticulosis There is no evidence of bowel obstruction. Appendix is normal. There is no free fluid. There is no mesenteric or retroperitoneal adenopathy. The abdominal aorta is normal in caliber. Mild aortoiliac atherosclerotic disease. Pelvis Findings: Urinary bladder is normal. Uterus is present. No pelvic free fluid. There is no pelvic or inguinal ad enopathy. There is no acute bony abnormality. Degenerative changes of the spine. IMPRESSION: 1. No acute findings. 2. Colonic diverticulosis. 3. Hepatomegaly and hepatic steatosis. Electronically signed by: Rg Hurley MD (07/16/2021 11:10 AM) [id number]
[2021-07-16 11:45] VITALS: BP 140/88
[2021-07-16] MEDS ORDERED: FAMO-63 PO (11:54)
[2021-07-16] MEDS ORDERED: SUCR1TAB35 PO (11:54)
[2021-07-16 12:17] LABS: INFLUENZA A PATIENT NEGATIVE (NEGATIVE); INFLUENZA B PATIENT NEGATIVE (NEGATIVE)
== END 2021-07-16 11:58 | disposition home or self-care (01) ==
LOC: ER 09:28
DX: R10.11 Right upper quadrant pain (principal); R11.0 Nausea; F41.9 Anxiety disorder, unspecified; E11.9 Type 2 diabetes mellitus without complications; F17.210 Nicotine dependence, cigarettes, uncomplicated; Z90.49 Acquired absence of other specified parts of digestive tract
CPT/HCPCS: 36415; 74177; 80053; 81001; 81025; 83690; 85025; 87804; 96361; 96374; 96375; 99285; J1885; J2405; J3490; J7030; Q9967; 87428